=== PATIENT | female | born 1945 | race Caucasian/White ===

== ENCOUNTER → 2018-06-04 | Outpatient (CLI) | payer MEDICARE, BC ==
--- NOTE | 2018-06-08 08:50 | MM ---
Reason for exam: screening (asymptomatic). Last mammogram was performed 2 years ago. History: Patient is postmenopausal. Family history of breast cancer in aunt. Physical Findings: A clinical breast exam by your physician is recommended on an annual basis and results should be correlated with mammographic findings. MG 3D Screening Mammo W/Cad Bilateral CC, MLO, and XCCL view(s) were taken. Prior study comparison: June 18, 2016, bilateral MG 3d screening mammo w/cad. July 04, 2009, bilateral digital screening mammogram. The breast tissue is almost entirely fat. No significant changes when compared with prior studies. ASSESSMENT: Benign, BI-RAD 2 RECOMMENDATION: Routine screening mammogram of both breasts in 1 year.
== END | disposition home or self-care (01) ==
LOC: RADMAMWWP 14:52
PROVIDERS: ATTEND Family Medicine
DX: Z12.31 Encounter for screening mammogram for malignant neoplasm of breast (principal)
CPT/HCPCS: 77063; 77067

== ENCOUNTER → 2020-12-11 | Outpatient (CLI) | payer MEDICARE, BC ==
--- NOTE | 2020-12-11 12:17 | BD ---
EXAMINATION TYPE: Axial Bone Density DATE OF EXAM: 12/11/2020 COMPARISON: 06/18/2016 CLINICAL HISTORY: 75-year-old female postmenopausal screening Height: 57.2 IN Weight: 192 LBS RISK FACTORS HISTORY OF: Family History of Osteoporosis: MOTHER Active: MODERATE Postmenopausal woman: AGE 64 MEDICATIONS: NONE EXAM MEASUREMENTS: Bone mineral densitometry was performed using the [email or web address] System. Bone mineral density as measured about the Lumbar spine is: ----- L1-L4(G/cm2): 1.030 T Score Values are as follows: ----- L2: -2.4 ----- L3: -1.0 ----- L4: -1.3 ----- L1-L4: -1.2 Bone mineral density has: Decreased -0.4% since study of: 06/18/2016 Bone mineral density about the R hip (g/cm2): 0.713 Bone mineral density about the L hip (g/cm2): 0.744 T Score values are as follows: -----R Neck: -2.3 -----L Neck: -2.1 -----R Total: -1.5 -----L Total: -1.9 Bone mineral density has: Decreased -7.7% since study of: 06/18/2016 IMPRESSION: Osteopenia (T Score between -2.5 and -1). There is slightly increased risk of fracture and the patient may be considered for treatment. Re-Screen 2-5 years. NOTE: T-SCORE=SD OF THE YOUNG ADULT MEAN.
== END | disposition home or self-care (01) ==
LOC: RADBDWWP 06:58
PROVIDERS: ATTEND Family Medicine
DX: M85.89 Other specified disorders of bone density and structure, multiple sites (principal); Z78.0 Asymptomatic menopausal state
CPT/HCPCS: 77080

== ENCOUNTER → 2021-10-26 | Outpatient (CLI) | payer MEDICARE | END | disposition home or self-care (01) | LOC: RADMAMWWP 16:07 | PROVIDERS: ATTEND Obstetrics & Gynecology | DX: Z53.9 Procedure and treatment not carried out, unspecified reason (principal) ==

== ENCOUNTER 2023-07-06 10:34 | Emergency (ER) | payer MEDICARE ==
[2023-07-06 10:58] VITALS: RESP 18
--- NOTE | 2023-07-06 11:42 | XR ---
EXAMINATION TYPE: XR foot complete LT DATE OF EXAM: 07/06/2023 11:31 AM CLINICAL INDICATION:Female, 77 years old with history of pain; PHH COMPARISON: None TECHNIQUE: XR foot complete LT examined in the AP, oblique, and lateral projections. FINDINGS: Fixation hardware in the second metatarsal head. Hardware appears intact. There is multifoc al degeneration of the midfoot joints with osteophyte formation joint space tearing. Calcaneal planta r spurring is present. No evidence of fracture. Soft tissues grossly unremarkable. IMPRESSION: 1. No evidence of acute fracture. 2. 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 3. Fixation hardware appears intact.
--- NOTE | 2023-07-06 12:19 | XR ---
EXAMINATION TYPE: XR lumbar spine 2 or 3V DATE OF EXAM: 07/06/2023 11:39 AM CLINICAL INDICATION:Female, 77 years old with history of pain; PHH COMPARISON: None TECHNIQUE: XR lumbar spine 2 or 3V - Frontal, lateral and coned in L5-S1 lateral views of the spine. FINDINGS: No evidence of any acute osseous pathology. No evidence of loss of vertebral body height i s seen. There is grade 1 anterolisthesis of L4 and L5 alignment of the lumbar vertebral bodies. Mild scattered disc space narrowing. Multilevel marginal osteophyte formation throughout the visualized sp ine. There is facet joint arthropathy throughout the spine. Scattered at least mild neural foraminal stenosis. IMPRESSION: 1. No acute fracture. 2. Moderate multilevel disc degeneration.
[2023-07-06] MEDS ORDERED: ACET/COD 300 MG/30 MG STARTER PACK 6 TAB BTL PO STA (12:46)
--- NOTE | 2023-07-06 12:48 | ED ---
Back Pain HPI - General Chief Complaint: Back Pain/Injury Stated Complaint: Back/Leg Pain Time Seen by Provider: 07/06/23 10:48 Source: patient, RN notes reviewed Limitations: no limitations - History of Present Illness Initial Comments: 77-year-old female presents emergency Department chief complaint low back pain, left foot pain. Patient states that she overdid at work. She states that she felt like she pulled a muscle. She has pain that radiates on her leg part of the leg. She has no bowel, bladder incontinence or retention of saddle anesthesias. She states she noticed lump on her foot which is painful. Patient denies any trauma to her foot - Related Data Home Medications Medication Instructions Recorded Confirmed Cranberry Conc/C/Bacill Coag 2 tab PO DAILY 10/07/14 10/18/14 [Cranberry Tablet] Previous Rx's Medication Instructions Recorded Acetaminophen-Codeine 300-30mg 2 tab PO Q6H PRN #20 tablet 10/20/14 [Tylenol #3] predniSONE 50 mg PO DAILY #5 tab 07/06/23 Allergies Allergy/AdvReac Type Severity Reaction Status Date / Time nitrofurantoin Allergy Swelling Verified 07/06/23 10:44 [From Macrobid] nitrofurantoin Allergy Swelling Verified 07/06/23 10:44 macrocrystalline [From Macrobid] Penicillins Allergy Rash/Hives Verified 07/06/23 10:44 sulfamethoxazole Allergy Rash/Hives Verified 07/06/23 10:44 [From Bactrim] trimethoprim [From Bactrim] Allergy Rash/Hives Verified 07/06/23 10:44 Review of Systems ROS Statement: Those systems with pertinent positive or pertinent negative responses have been documented in the HPI. ROS Other: All systems not noted in ROS Statement are negative. Past Medical History Past Medical History: No Reported History, Osteoarthritis (OA) Additional Past Medical History / Comment(s): GOUT, PROLAPSED BLADDER. FREQ UTI'S. History of Any Multi-Drug Resistant Organisms: None Reported Past Surgical History: Cholecystectomy, Joint Replacement Additional Past Surgical History / Comment(s): bilateral total knee replacement. jaw surgery, tummy tuck, Past Anesthesia/Blood Transfusion Reactions: Postoperative Nausea & Vomiting (PONV) Past Psychological History: No Psychological Hx Reported Smoking Status: Never smoker Past Alcohol Use History: None Reported Past Drug Use History: None Reported - Past Family History Father Family Medical History: No Reported History General Exam Limitations: no limitations General appearance: alert, in no apparent distress Head exam: Present: atraumatic, normocephalic, normal inspection Neck exam: Present: normal inspection, full ROM. Absent: tenderness, meningismus, lymphadenopathy Respiratory exam: Present: normal lung sounds bilaterally. Absent: respiratory distress, wheezes, rales, rhonchi, stridor Cardiovascular Exam: Present: regular rate, normal rhythm, normal heart sounds. Absent: systolic murmur, diastolic murmur, rubs, gallop, clicks GI/Abdominal exam: Present: soft, normal bowel sounds. Absent: distended, tenderness, guarding, rebound, rigid Extremities exam: Present: other (Left foot dorsal aspect there is bony overgrowth, neurovascular intact mild tenderness) Back exam: Present: normal inspection, full ROM, tenderness, muscle spasm, paraspinal tenderness. Absent: vertebral tenderness Neurological exam: Present: alert, oriented X3, CN II-XII intact, reflexes normal. Absent: motor sensory deficit Course Vital Signs 07/06/23 07/06/23 10:41 12:51 Temperature 98 F 97.9 F Pulse Rate 98 78 Respiratory 18 18 Rate Blood Pressure 128/81 120/78 O2 Sat by Pulse 95 97 Oximetry Medical Decision Making - Medical Decision Making Was pt. sent in by a medical professional or institution ([facility], [employer], urgent care, hospital, or long term...) When possible be specific @ -No Did you speak to anyone other than the patient for history (EMS, parent, family, police, friend...)? What history was obtained from this source @ -No Did you review nursing and triage notes (agree or disagree)? Why? @ -I reviewed and agree with nursing and triage notes Were old charts reviewed (outside hosp., previous admission, EMS record, old EKG, old radiological studies, urgent care reports/EKG's, long term records)? Report findings @ -No old charts were reviewed Differential Diagnosis (chest pain, altered mental status, abdominal pain women, abdominal pain men, vaginal bleeding, weakness, fever, dyspnea, syncope, headache, dizziness, GI bleed, back pain, seizure, CVA, palpatations, mental health, musculoskeletal)? @ -Differential Back Pain: Strain, zoster, cauda equina syndrome, epidural abscess, vertebral osteomyelitis, discitis, fracture, subluxation, disc herniation, DJD, spinal stenosis, dissection, AAA, pancreatitis, peptic ulcer disease, pyelonephritis, kidney stone, this is not meant to be an all-inclusive list.ble EKG interpreted by me (3pts min.). @ -None X-rays interpreted by me (1pt min.). @ -X-ray lumbar spine showing mild degenerative changes, left foot x-ray shows osteoarthritis with bony overgrowth CT interpreted by me (1pt min.). @ -None done U/S interpreted by me (1pt. min.). @ -None done What testing was considered but not performed or refused? (CT, X-rays, U/S, labs)? Why? @ -None What meds were considered but not given or refused? Why? @ -None Did you discuss the management of the patient with other professionals (professionals i.e. , PA, [employer]ER, lab, RT, psych nurse, social contact worker, barrel finisher, teacher, small business banking officer, piano case maker)? Give summary @ -No Was smoking cessation discussed for >3mins.? @ -No Was critical care preformed (if so, how long)? @ -No Were there social determinants of health that impacted care today? How? (Homelessness, low income, unemployed, alcoholism, drug addiction, transportation, low edu. Level, literacy, decrease access to med. care, [place] [facility], rehab)? @ -No Was there de-escalation of care discussed even if they declined (Discuss DNR or withdrawal of care, Hospice)? DNR status @ -No What co-morbidities impacted this encounter? (DM, HTN, Smoking, COPD, CAD, Cancer, CVA, ARF, Chemo, Hep., AIDS, mental health diagnosis, sleep apnea, morbid obesity)? @ -None Was patient admitted / discharged? Hospital course, mention meds given and route, prescriptions, significant lab abnormalities, going to OR and other pertinent info. @ -Discharge patient is lumbar radiculopathy with no red flag symptoms. Patient we discharged with prednisone and advised take Tylenol for the pain otherwise. She does have osteoarthritis of her left foot she may follow-up with orthopedics as needed return parameters were discussed. Undiagnosed new problem with uncertain prognosis? @ -No Drug Therapy requiring intensive monitoring for toxicity (Heparin, Nitro, Insulin, Cardizem)? @ -No Were any procedures done? @ -No Diagnosis/symptom? @ -Lumbar radiculopathy, left foot osteoarthritis Acute, or Chronic, or Acute on Chronic? @ -Acute Uncomplicated (without systemic symptoms) or Complicated (systemic symptoms)? @ -Uncomplicated Side effects of treatment? @ -No Exacerbation, Progression, or Severe Exacerbation? @ -No Poses a threat to life or bodily function? How? (Chest pain, [place], [place], pneumonia, PE, COPD, DKA, ARF, appy, cholecystitis, CVA, Diverticulitis, Homicidal, Suicidal, threat to staff... and all critical care pts) @ -No Disposition Clinical Impression: Lumbar radiculopathy, Foot pain Disposition: HOME SELF-CARE Condition: Stable Instructions (If sedation given, give patient instructions): Acute Low Back Pain (ED) Additional Instructions: Please return to the Emergency Department if symptoms worsen or any other concerns. Prescriptions: predniSONE 50 mg PO DAILY #5 tab Is patient prescribed a controlled substance at d/c from ED?: No Referrals: Zac Reina MD [Primary Care Provider] - 1-2 days Time of Disposition: 12:47
[2023-07-06 12:59] VITALS: BP 120/78; PULSE 78; TEMP 97.9
== END 2023-07-06 12:57 | disposition home or self-care (01) ==
LOC: EC 10:34
DX: M47.26 Other spondylosis with radiculopathy, lumbar region (principal); M19.072 Primary osteoarthritis, left ankle and foot; Z88.0 Allergy status to penicillin; Z88.1 Allergy status to other antibiotic agents; Z88.2 Allergy status to sulfonamides
CPT/HCPCS: 72100; 99283

== ENCOUNTER → 2025-02-11 | Outpatient (CLI) | payer MEDICARE ==
--- NOTE | 2025-02-11 16:15 | CT ---
EXAMINATION TYPE: CT chest wo con DATE OF EXAM: 02/11/2025 COMPARISON: None CLINICAL INDICATION: Female, 79 years old with history of J84.9 INTERSTITIAL PULMONARY DISEASE, UNSPE CIFIED; PHH, pulmonary disease TECHNIQUE: CT scan of the thorax is performed without IV contrast. CT DLP: 1369.[address] CTDI: mGy Automated exposure control for dose reduction was used. FINDINGS: There is moderate diffuse coarse interstitial density with a apicobasal gradient. There is mild tract ion bronchiectasis. There is a few small focal areas of honeycombing in the subpleural lung bases. Th ere is no groundglass opacity. There is no pleural effusion or pneumothorax. Main pulmonary artery is markedly dilated to 4.8 cm indicating pulmonary hypertension. There is 4.2 c m dilatation of the ascending thoracic aorta. There is mild cardiomegaly. There is no definite mediastinal, hilar or axillary adenopathy. Limited scanning through the upper abdomen reveals a large hiatal with a partially intrathoracic stom ach. IMPRESSION: IMPRESSION: 1. 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 2. 4.8 cm dilatation of the main pulmonary artery indicating pulmonary hypertension. 3. Mild cardiomegaly. 4. 4.2 cm aneurysmal dilatation of the ascending thoracic aorta. 5. Large hiatal hernia with partially intrathoracic stomach [facility], , 02/11/2025 4:13 PM
== END | disposition home or self-care (01) ==
LOC: RADCTMAIN 15:28
PROVIDERS: ATTEND Internal Medicine
DX: J84.9 Interstitial pulmonary disease, unspecified (principal); I27.20 Pulmonary hypertension, unspecified; I71.21 Aneurysm of the ascending aorta, without rupture; K44.9 Diaphragmatic hernia without obstruction or gangrene; I51.7 Cardiomegaly
CPT/HCPCS: 71250